=== PATIENT | female | born 1965 | race Caucasian/White ===

== ENCOUNTER 2020-08-18 11:07 | Outpatient (REF) | payer OTHER, SELFPAY ==
[2020-08-18 13:58] LABS: Hemoglobin 13.8 g/dl (12.0-16.0); Mean Corpuscular HGB Conc 31.4 g/dl (31.0-35.0); Mean Corpuscular Hemoglobin 27.7 pg (27.0-33.0); Mean Corpuscular Volume 88.2 fL (80-98); Mean Platelet Volume 10.3 fL (9.4-12.3); Platelet Count 316 X10*3/uL (160-400); Red Blood Count 4.99 X10*6/uL (4.20-5.50); White Blood Count 9.8 X10*3/uL (4.8-10.8)
[2020-08-18 14:38] LABS: Alanine Aminotransferase 64 U/L (0-31); Albumin Level 4.6 g/dL (3.5-5.0); Alkaline Phosphatase 90 U/L (39-117); Anion Gap 17 (12-20); Aspartate Amino Transferase 41 U/L (5-31); Bilirubin Total 0.6 mg/dL (0.0-1.0); Blood Urea Nitrogen 9 mg/dL (9-16); Calcium 9.3 mg/dL (8.4-10.2); Carbon Dioxide 28 mmol/L (22-29); Chloride 98 mmol/L (96-108); Cholesterol 261 mg/dL; Estimated Glomerular Filt Rate > 60; Glucose Fasting 124 mg/dL (60-99); HDL Cholesterol 56 mg/dL; LDL Cholesterol Calculated 173 mg/dl; Potassium 4.5 mmol/l (3.3-5.1); Sodium 138 mmol/L (135-145); Total Protein 7.5 g/dL (6.5-8.0); Triglycerides 163 mg/dL
[2020-08-18 14:49] LABS: Thyroid Stimulating Hormone 1.67 mIU/mL (0.32-4.0)
== END 2020-08-18 11:08 | disposition home or self-care (01) ==
LOC: HO.HMGCLDS 11:07
PROVIDERS: PCP Internal Medicine; Visit Provider Internal Medicine
DX: D23.9 Other benign neoplasm of skin, unspecified (principal); E66.9 Obesity, unspecified; K76.0 Fatty (change of) liver, not elsewhere classified; E78.5 Hyperlipidemia, unspecified; Z00.00 Encounter for general adult medical examination without abnormal findings; Z13.9 Encounter for screening, unspecified
CPT/HCPCS: 36415; 80053; 80061; 84443; 85027

== ENCOUNTER 2022-01-19 09:45 | Outpatient (REF) | payer OTHER, SELFPAY ==
--- NOTE | ~2022-01-19 | XR_ITS ---
EXAMINATION: XR BILATERAL KNEE AND BILATERAL HAND CLINICAL INFORMATION: Pain in knee and bilateral hands. COMPARISON: None. TECHNIQUE: 2 views each knee and 3 views each hand. FINDINGS: Right Knee: There is mild loss of medial and patellofemoral compartment joint space without bony erosive changes or loose bodies. There is no abnormal suprapatellar joint effusion. No visible acute fracture or dislocation seen. There is bilateral soft tissue calcification. Left Knee: There is mild reduction in the medial and patellofemoral compartment joint space left knee with minimal suprapatellar joint effusion. No visible acute fracture or dislocation seen. The soft tissues are normal. There is bilateral soft tissue calcification. Right Hand: There is severe loss of PIP and DIP joints with significant periarticular spurring DIP joints and minimal spurring PIP joints with mild flexion deformities involving the DIP joint 2nd through 5th digits. The MCP joints intercarpal joints are preserved. No visible acute fracture, dislocation or subluxation seen. Left Hand: There is severe loss of PIP and DIP joints with moderate periarticular spurring. The MCP joint spaces are preserved. There is no visible acute fracture or dislocation. No lytic process. The soft tissues are normal. 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 There is no visible acute fracture or dislocation seen. Mild degenerative changes medial and patellofemoral compartments both knees with soft tissue calcification.
--- NOTE | ~2022-01-19 | XR_ITS ---
EXAMINATION: XR BILATERAL KNEE AND BILATERAL HAND CLINICAL INFORMATION: Pain in knee and bilateral hands. COMPARISON: None. TECHNIQUE: 2 views each knee and 3 views each hand. FINDINGS: Right Knee: There is mild loss of medial and patellofemoral compartment joint space without bony erosive changes or loose bodies. There is no abnormal suprapatellar joint effusion. No visible acute fracture or dislocation seen. There is bilateral soft tissue calcification. Left Knee: There is mild reduction in the medial and patellofemoral compartment joint space left knee with minimal suprapatellar joint effusion. No visible acute fracture or dislocation seen. The soft tissues are normal. There is bilateral soft tissue calcification. Right Hand: There is severe loss of PIP and DIP joints with significant periarticular spurring DIP joints and minimal spurring PIP joints with mild flexion deformities involving the DIP joint 2nd through 5th digits. The MCP joints intercarpal joints are preserved. No visible acute fracture, dislocation or subluxation seen. Left Hand: There is severe loss of PIP and DIP joints with moderate periarticular spurring. The MCP joint spaces are preserved. There is no visible acute fracture or dislocation. No lytic process. The soft tissues are normal. 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 There is no visible acute fracture or dislocation seen. Mild degenerative changes medial and patellofemoral compartments both knees with soft tissue calcification.
--- NOTE | ~2022-01-19 | XR_ITS ---
EXAMINATION: XR BILATERAL KNEE AND BILATERAL HAND CLINICAL INFORMATION: Pain in knee and bilateral hands. COMPARISON: None. TECHNIQUE: 2 views each knee and 3 views each hand. FINDINGS: Right Knee: There is mild loss of medial and patellofemoral compartment joint space without bony erosive changes or loose bodies. There is no abnormal suprapatellar joint effusion. No visible acute fracture or dislocation seen. There is bilateral soft tissue calcification. Left Knee: There is mild reduction in the medial and patellofemoral compartment joint space left knee with minimal suprapatellar joint effusion. No visible acute fracture or dislocation seen. The soft tissues are normal. There is bilateral soft tissue calcification. Right Hand: There is severe loss of PIP and DIP joints with significant periarticular spurring DIP joints and minimal spurring PIP joints with mild flexion deformities involving the DIP joint 2nd through 5th digits. The MCP joints intercarpal joints are preserved. No visible acute fracture, dislocation or subluxation seen. Left Hand: There is severe loss of PIP and DIP joints with moderate periarticular spurring. The MCP joint spaces are preserved. There is no visible acute fracture or dislocation. No lytic process. The soft tissues are normal. 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 There is no visible acute fracture or dislocation seen. Mild degenerative changes medial and patellofemoral compartments both knees with soft tissue calcification.
--- NOTE | ~2022-01-19 | XR_ITS ---
EXAMINATION: XR BILATERAL KNEE AND BILATERAL HAND CLINICAL INFORMATION: Pain in knee and bilateral hands. COMPARISON: None. TECHNIQUE: 2 views each knee and 3 views each hand. FINDINGS: Right Knee: There is mild loss of medial and patellofemoral compartment joint space without bony erosive changes or loose bodies. There is no abnormal suprapatellar joint effusion. No visible acute fracture or dislocation seen. There is bilateral soft tissue calcification. Left Knee: There is mild reduction in the medial and patellofemoral compartment joint space left knee with minimal suprapatellar joint effusion. No visible acute fracture or dislocation seen. The soft tissues are normal. There is bilateral soft tissue calcification. Right Hand: There is severe loss of PIP and DIP joints with significant periarticular spurring DIP joints and minimal spurring PIP joints with mild flexion deformities involving the DIP joint 2nd through 5th digits. The MCP joints intercarpal joints are preserved. No visible acute fracture, dislocation or subluxation seen. Left Hand: There is severe loss of PIP and DIP joints with moderate periarticular spurring. The MCP joint spaces are preserved. There is no visible acute fracture or dislocation. No lytic process. The soft tissues are normal. 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 There is no visible acute fracture or dislocation seen. Mild degenerative changes medial and patellofemoral compartments both knees with soft tissue calcification.
[2022-01-19 11:32] LABS: Appearance Urine CLEAR; Color Urine YELLOW; Glucose Urine UA NEG (NEG); Leukocyte Esterase Urine NEG (NEG); Nitrite Urine NEG (NEG); PH 6.5 (5.0-8.0); Specific Gravity - Urine 1.015 (1.005-1.025); Urine Blood NEG (NEG); Urine Ketones NEG (NEG); Urine Protein NEG (NEG-TRACE)
[2022-01-19 11:57] LABS: Bacteria Urine 2+ /LPF; RBC Urine 0 /HPF (0); Squamous Epithelial Cell Urine 2+ /LPF; WBC Urine 0-2 /HPF (0-4)
[2022-01-19 12:03] LABS: Hematocrit 43.7 % (37.0-47.0); Hemoglobin 13.9 g/dl (12.0-16.0); Mean Corpuscular HGB Conc 31.8 g/dl (31.0-35.0); Mean Corpuscular Hemoglobin 27.6 pg (27.0-33.0); Mean Corpuscular Volume 86.9 fL (80.0-98.0); Mean Platelet Volume 10.5 fL (9.4-12.3); Platelet Count 318 X10*3/uL (160-400); Red Blood Count 5.03 X10*6/uL (4.20-5.50); Red Cell Distribution Width 14.2 % (11.0-16.0); White Blood Count 9.3 X10*3/uL (4.8-10.8)
[2022-01-19 12:26] LABS: Alanine Aminotransferase 81 U/L (0-31); Albumin Level 4.4 g/dL (3.5-5.0); Alkaline Phosphatase 101 U/L (39-117); Anion Gap 14 (12-20); Aspartate Amino Transferase 59 U/L (5-31); Bilirubin Total 0.6 mg/dL (0.0-1.0); Blood Urea Nitrogen 9 mg/dL (9-16); Carbon Dioxide 32 mmol/L (22-29); Chloride 99 mmol/L (96-108); Cholesterol 253 mg/dL; Estimated Glomerular Filt Rate > 60; Glucose Fasting 136 mg/dL (60-99); HDL Cholesterol 52 mg/dL; LDL Cholesterol Calculated 166 mg/dl; Potassium 4.5 mmol/L (3.3-5.1); Sodium 140 mmol/L (135-145); Total Protein 7.6 g/dL (6.5-8.0); Triglycerides 179 mg/dL
[2022-01-19 12:40] LABS: TSH reflex Free T4 2.33 uIU/mL (0.32-4.0)
== END 2022-01-19 09:46 | disposition home or self-care (01) ==
LOC: HO.HMGCX 09:45
PROVIDERS: PCP Internal Medicine; Visit Provider Internal Medicine
DX: Z00.00 Encounter for general adult medical examination without abnormal findings (principal); E78.5 Hyperlipidemia, unspecified; M25.569 Pain in unspecified knee; M79.641 Pain in right hand; M79.642 Pain in left hand
CPT/HCPCS: 36415; 73120; 73560; 80053; 80061; 81001; 84443; 85027

== ENCOUNTER 2022-03-03 16:00 | Outpatient (RCR) | payer OTHER, SELFPAY ==
--- NOTE | 2022-01-31 16:57 | MHC.PT.EP ---
[facility] [place] Office [place] Office [place] Office [address] [phone] F: [phone] F: [phone] F: [phone] F: [phone] Physical Therapy Plan of Care Date of Evaluation: Date of Surgery: n/a Diagnosis: L knee pain Assessment: Patient is a 56 year old female presenting to PT with complaints of pain in her B knees L>R. Pt reports onset of pain began worsening 2 weeks ago due to insidious onset. She presents today with impairments in pain, ROM, strength, gait mechanics. 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 Clinical presentation today is most consistent with signs and sx associated with knee pain likely related to OA and muscle imbalances and pt will benefit from skilled PT to address the following problems and impairments noted upon evaluation: pain, ROM, strength, gait mechanics. These problems limit the patient with the following functional activities: ADLs, standing, ambulation, stair negotiation. The prescribed treatment plan of care is medically necessary. Co-morbidities of diabetes and osteoporosis were identified and taken into considerations of plan of care. Pt was educated on HEP, role of PT, prognosis, POC. Frequency and Duration: The patient will be seen 2 x week x 5 weeks Short Term Goals: Pt will demonstrate L knee AROM equal B in 3 weeks. Pt will demonstrate B knee strength 5/5 without pain on L in 3 weeks. Pt will demonstrate hip strength at least 4/5 in 3 weeks for improved lumbopelvic stability. Pt will demonstrate pain at rest <4/10 in 3 weeks. Manager Access Goals: Pt will demonstrate improved LEFI score by 9 points for improved overall functional mobility in 5 weeks. Pt will demonstrate ability to negotiate stairs in her home with min to no pain in 5 weeks for improved access to her home. Pt will demonstrate ability to stand/ambulate with min to no pain in 5 weeks for return to PLOF. Pt will demonstrate ability to complete all ADLs and household duties with min to no pain in 5 weeks for return to PLOF. Treatment Plan: Modalities to reduce pain, spasms and effusion. Manual therapy to restore motion and function. Therapeutic exercise to improve strength and flexibility. Neuromuscular re-education for posture and balance. Therapeutic activities to return to functional activities of daily living. Electronically signed by: Es Meneses, PT, DPT, ATC Please sign and return to therapist. Thank you for your referral.
--- NOTE | 2022-04-08 07:46 | MHC.PT.DC ---
[facility] [place] Office [place] Office [place] Office [address] [phone] F: [phone] F: [phone] F: [phone] F: [phone] Physical Therapy Discharge Report Diagnosis: L knee pain Date of Surgery: n/a Date of Evaluation: 01/31/22 Date of Discharge: 04/08/22 Treatments to Date: 7 Cancellations to Date: 5 No Shows to Date: 1 Discharge Status: Visit Non-compliance Discharge Summary: Pt has cancelled/ no showed her last 4 appointments and not attended skilled PT in >30 days She has also not reached out to schedule. Pt status unknown at this time. Electronically signed by: Es Meneses, PT, DPT, ATC Please sign and return to therapist. Thank you for your referral.
== END 2022-04-08 07:46 | disposition home or self-care (01) ==
LOC: HO.PTCHIC 16:00
PROVIDERS: PCP Internal Medicine; Visit Provider Internal Medicine
DX: M25.562 Pain in left knee (principal)
CPT/HCPCS: 97110; 97161

== ENCOUNTER 2022-04-26 13:09 | Outpatient (REF) | payer OTHER, SELFPAY ==
[2022-04-26 14:34] LABS: Alanine Aminotransferase 35 U/L (0-31); Albumin Level 4.5 g/dL (3.5-5.0); Alkaline Phosphatase 135 U/L (39-117); Anion Gap 12 (12-20); Aspartate Amino Transferase 27 U/L (5-31); Bilirubin Total 0.8 mg/dL (0.0-1.0); Blood Urea Nitrogen 9 mg/dL (9-16); Calcium 9.5 mg/dL (8.4-10.2); Carbon Dioxide 33 mmol/L (22-29); Chloride 100 mmol/L (96-108); Cholesterol 175 mg/dL; Estimated Glomerular Filt Rate > 60; Glucose Fasting 113 mg/dL (60-99); HDL Cholesterol 51 mg/dL; LDL Cholesterol Calculated 100 mg/dl; Potassium 4.5 mmol/L (3.3-5.1); Rheumatoid Factor < 15.0 IU/mL (<15.0); Sodium 140 mmol/L (135-145); Total Protein 7.4 g/dL (6.5-8.0); Triglycerides 121 mg/dL
[2022-04-26 14:36] LABS: Estimated Average Glucose 148 mg/dL; Hemoglobin A1c % 6.8 %
[2022-04-26 14:57] LABS: TSH reflex Free T4 1.66 uIU/mL (0.32-4.0)
[2022-04-26 17:08] LABS: Creatinine Urine 77.78 mg/dL; Microalbum/Creatinine Ratio Ur 10.2 ug/mg cr
[2022-05-02 13:55] LABS: Cyclic Citrullinated Peptide <16 UNITS
== END 2022-04-26 13:10 | disposition home or self-care (01) ==
LOC: HO.HMGCLDS 13:09
PROVIDERS: PCP Internal Medicine; Visit Provider Internal Medicine
DX: E78.5 Hyperlipidemia, unspecified (principal); R73.9 Hyperglycemia, unspecified; M25.50 Pain in unspecified joint
CPT/HCPCS: 36415; 80053; 80061; 82043; 83036; 84443; 86200; 86431

== ENCOUNTER 2022-12-02 07:33 | Outpatient (REF) | payer OTHER, SELFPAY ==
[2022-12-02 12:12] LABS: Alanine Aminotransferase 44 U/L (0-31); Albumin Level 4.3 g/dL (3.5-5.0); Alkaline Phosphatase 126 U/L (39-117); Anion Gap 20 (12-20); Aspartate Amino Transferase 37 U/L (5-31); Bilirubin Total 0.9 mg/dL (0.0-1.0); Blood Urea Nitrogen 10 mg/dL (9-16); Calcium 9.5 mg/dL (8.4-10.2); Carbon Dioxide 27 mmol/L (22-29); Chloride 99 mmol/L (96-108); Cholesterol 194 mg/dL; Estimated Glomerular Filt Rate > 60; Glucose Fasting 147 mg/dL (60-99); HDL Cholesterol 48 mg/dL; LDL Cholesterol Calculated 114 mg/dl; Potassium 4.5 mmol/L (3.3-5.1); Sodium 141 mmol/L (135-145); Total Protein 7.1 g/dL (6.5-8.0); Triglycerides 161 mg/dL
[2022-12-02 14:15] LABS: Estimated Average Glucose 186 mg/dL; Hemoglobin A1c % 8.1 %
== END 2022-12-02 07:34 | disposition home or self-care (01) ==
LOC: HO.HMGCLDS 07:33
PROVIDERS: PCP Internal Medicine; Visit Provider Internal Medicine
DX: R73.9 Hyperglycemia, unspecified (principal); E78.5 Hyperlipidemia, unspecified
CPT/HCPCS: 36415; 80053; 80061; 83036

== ENCOUNTER 2023-02-28 07:26 | Outpatient (REF) | payer OTHER, SELFPAY ==
[2023-02-28 12:15] LABS: Estimated Average Glucose 160 mg/dL; Hemoglobin A1c % 7.2 %
[2023-02-28 12:33] LABS: Alanine Aminotransferase 50 U/L (0-31); Albumin Level 4.3 g/dL (3.5-5.0); Alkaline Phosphatase 140 U/L (39-117); Anion Gap 18 (12-20); Aspartate Amino Transferase 34 U/L (5-31); Bilirubin Total 0.7 mg/dL (0.0-1.0); Blood Urea Nitrogen 13 mg/dL (9-16); Calcium 9.6 mg/dL (8.4-10.2); Carbon Dioxide 27 mmol/L (22-29); Chloride 100 mmol/L (96-108); Cholesterol 197 mg/dL; Estimated Glomerular Filt Rate > 60; Glucose Fasting 133 mg/dL (60-99); HDL Cholesterol 46 mg/dL; LDL Cholesterol Calculated 110 mg/dl; Potassium 4.5 mmol/L (3.3-5.1); Sodium 140 mmol/L (135-145); Triglycerides 205 mg/dL
[2023-02-28 12:55] LABS: Creatinine Urine 229.15 mg/dL; Microalbum/Creatinine Ratio Ur 7.8 ug/mg cr
== END 2023-02-28 07:27 | disposition home or self-care (01) ==
LOC: HO.HMGCLDS 07:26
PROVIDERS: PCP Internal Medicine; Visit Provider Internal Medicine
DX: E11.9 Type 2 diabetes mellitus without complications (principal); E78.5 Hyperlipidemia, unspecified
CPT/HCPCS: 36415; 80053; 80061; 82043; 83036

== ENCOUNTER 2024-03-19 08:22 | Outpatient (REF) | payer OTHER, SELFPAY ==
[2024-03-19 10:22] LABS: MANUAL DIFF FLAG NO
[2024-03-19 10:34] LABS: Basophils Absolute Auto 0.1 X10*3/uL (0.0-0.2); Basophils Percent Auto 0.7 % (0-2); Eosinophils Absolute Auto 0.3 X10*3/uL (0.0-0.4); Eosinophils Percent Auto 3.2 % (0-4); Hematocrit 44.4 % (37.0-47.0); Hemoglobin 14.3 g/dl (12.0-16.0); Imm Gran Abs Auto 0.04 X10*3/uL (0.00-0.03); Imm Gran Pct Auto 0.4 % (0.0-0.4); Lymphocytes Absolute Auto 2.7 X10*3/uL (1.2-4.9); Lymphocytes Percent Auto 29.8 % (20-40); Mean Corpuscular HGB Conc 32.2 g/dl (31.0-35.0); Mean Corpuscular Hemoglobin 27.7 pg (27.0-33.0); Mean Platelet Volume 10.6 fL (9.4-12.3); Monocytes Absolute Auto 0.5 X10*3/uL (0.1-1.2); Monocytes Percent Auto 5.5 % (2-11); Neutrophils Absolute Auto 5.4 x10*3/uL (2.0-8.3); Neutrophils Percent Auto 60.4 % (45-73); Platelet Count 279 X10*3/uL (160-400); Red Blood Count 5.16 X10*6/uL (4.20-5.50); Red Cell Distribution Width 13.9 % (11.0-16.0)
[2024-03-19 10:43] LABS: Estimated Average Glucose 237 mg/dL; Hemoglobin A1c % 9.9 % (<6.0)
[2024-03-19 11:04] LABS: Creatinine Urine 174.58 mg/dL; Microalbum/Creatinine Ratio Ur 10.8 ug/mg cr (<30)
[2024-03-19 11:05] LABS: Alanine Aminotransferase 56 U/L (0-31); Albumin Level 4.1 g/dL (3.5-5.0); Alkaline Phosphatase 117 U/L (39-117); Anion Gap 15 (12-20); Aspartate Amino Transferase 42 U/L (5-31); Bilirubin Total 0.8 mg/dL (0.0-1.0); Blood Urea Nitrogen 12 mg/dL (9-16); Calcium 9.5 mg/dL (8.4-10.2); Carbon Dioxide 28 mmol/L (22-29); Chloride 99 mmol/L (96-108); Cholesterol 239 mg/dL (<200); Estimated Glomerular Filt Rate > 60; Glucose Fasting 176 mg/dL (60-99); HDL Cholesterol 49 mg/dL (>40); LDL Cholesterol Calculated 158 mg/dL (<100); Sodium 138 mmol/L (135-145); Total Protein 7.6 g/dL (6.5-8.0); Triglycerides 164 mg/dL (<150)
[2024-03-19 11:21] LABS: TSH reflex Free T4 2.89 uIU/mL (0.32-4.0)
== END 2024-03-19 08:23 | disposition home or self-care (01) ==
LOC: HO.HMGCLDS 08:22
PROVIDERS: PCP Internal Medicine; Visit Provider Internal Medicine
DX: Z00.00 Encounter for general adult medical examination without abnormal findings (principal); E78.5 Hyperlipidemia, unspecified; E11.9 Type 2 diabetes mellitus without complications
CPT/HCPCS: 36415; 80053; 80061; 82043; 82570; 83036; 84443; 85025

== ENCOUNTER 2024-03-21 09:27 | Outpatient (AMB) | payer OTHER, SELFPAY ==
[2024-03-21 09:30] VITALS: BP 120/80; PULSE 93; O2SAT 96; BMI 48.8
--- NOTE | 2024-03-21 09:30 | MHC.PC.OV ---
Vital Signs 03/21/24 09:30 Height 5 ft Weight 250 lb BMI 48.8 BP 120/80 Blood Pressure Location Lt brachial Position Sitting Pulse 93 Pulse Source Pulse Oximeter Pulse Oximetry (%) 96 Oxygen Delivery Method Room Air Intake Visit Reasons: Diabetic follow-up Intake Note: Pt is here today for a follow up visit on DM. Allergies Sulfa (Sulfonamide Antibiotics) Allergy (Intermediate, Verified 03/21/24 09:39) swollen tounge pravastatin Adverse Reaction (Intermediate, Verified 03/21/24 09:39) Headache Medication List - Last Reconciled 03/21/24 by Marissa Perez MD atorvastatin 20 mg PO DAILY blood sugar diagnostic (FreeStyle Test strips) Test blood sugar twice a day blood-glucose meter (FreeStyle Lite Meter kit) As directed lancets (FreeStyle Lancets) Test blood sugar twice a day metformin ER 1,500 mg (2 x 750 mg) PO DAILY tobramycin 0.3% 1 drp ophthalmic (eye) Q4H venlafaxine ER 150 mg PO BEDTIME Tobacco use date assessed: 03/21/24 Dental Screening Dental Screen Date: 03/21/24 Did you have a dental visit in the last 12 months?: No Did you have a dental problem in the last 6 months where you did not have access to dental care?: No Was dental information given to patient?: Patient declined HPI Diabetic follow-up HPI Details Pt presents for f/u poorly controlled DM 2. She stopped taking Metformin and atorvastatin a few months ago after her father from heart attack last April. Patient reports fasting blood glucose between 180-250. She has been following ADA diet and started exercising the last month and noticed improvement in her blood glucose readings. Chronic anxiety is controlled on Venlafaxine. PFSH Medical History Hyperglycemia Left knee pain Pain in both hands Knee pain Dysplastic nevus Annual physical exam Hyperlipemia Obesity Depression Fatty liver Surgical History S/P AUGUSTO (total abdominal hysterectomy) S/P total hysterectomy Family History Father Hypertension Colon cancer Mother Hypertension Diabetes Breast cancer Social History Housing: House Patient Tobacco Use Status: Never used Tobacco e-Cigarette/Vaping Use: Never Used service: No Current occupational status: unemployed Cognitive needs: No Hearing needs: No Vision needs: Yes Questionnaire PHQ-9 Over the last 2 weeks, how often have you been bothered by any of the following problems? 90090 - PHQ-9 Billing: Patient declined-do not bill Source: Developed by Drs. Gaetano Fajardo, Hector Bates and colleagues, with an educational janet from [employer]. Thrive Questionnaire Date Thrive assessed: 03/21/24 I am a: Patient What is your living situation today?: I have a steady place to live Within the past 12 months, did the food you bought not last and you didn't have the money to get more?: Never true Within the past 12 months, did you worry whether your food would run out before you got money to buy more?: Never true Do you have trouble paying for medicines?: No Do you have trouble getting transportation to medical appointments?: No Do you have trouble paying your heating and electricity bill?: No Do you have trouble taking care of your child, family member or friend?: No Do you have trouble with day-to-day activities such as bathing, preparing meals, shopping, managing finances, etc.?: No Are you currently unemployed and looking for a job?: Yes Are you interested in more education?: No Please select the resources that you would like help with: Job search/training THRIVE Score: 0 AUDIT C Alcohol Use Questionnaire (AUDIT-C) 1. How often do you have a drink containing alcohol?: Never 3. How often do you have six or more drinks on one occasion?: Never Total Score: 0 SATYA-7 AMB Questionnaire SATYA-7 Date SATYA - 7 assessed: 03/21/24 Source: Developed by Drs. Gaetano Fajardo, Hector Bates and colleagues, with an educational janet from [employer]. SATYA-7 Assessment Billing SATYA-7 Assessment Tool: pt declined-do not bill Review of Systems Const All systems reviewed & are unremarkable except as noted in HPI and below Eyes Reports no additional complaints ENT Reports no additional complaints Card Reports no additional complaints Resp Reports no additional complaints GI Reports no additional complaints Reports no additional complaints Physical exam (Primary Care) Vital Signs: Last Vital Signs Pulse 93 03/21/24 09:30 BP 136/82 03/21/24 09:30 Pulse Ox 96 03/21/24 09:30 Oxygen Delivery Method Room Air 03/21/24 09:30 BMI result Body Mass Index 48.8 Tobacco/Smoking Status: Tobacco use Status Tobacco use date assessed 03/21/24 03/21/24 09:44 Patient Tobacco Use Status Never used Tobacco 03/21/24 09:44 e-Cigarette/Vaping Use Never Used 03/21/24 09:30 Thrive Assessment: Date of Thrive Assessment Date Thrive assessed 03/01/23 03/21/24 09:30 Const General: no acute distress HENMT Head: Yes normal to inspection Face and sinus: Yes normal facial exam Eyes General: appearance normal, both eyes and all related structures Neck Neck: Yes no lymphadenopathy and Yes supple Resp Effort & Inspection: normal respiratory effort Auscultation: clear to auscultation bilaterally Cardio Rhythm: regular rhythm Heart sounds: S1 normal heart sound present and S2 normal heart sound present GI Inspection: Yes normal to inspection Palpation (GI): Soft to palpation Percussion: Yes normal to percussion Auscultation: normal bowel sounds Assessment and Plan Assessment & Plan (1) Hyperlipemia: Code(s): E78.5 - Hyperlipidemia, unspecified Plan: Restart atorvastatin (2) Anxiety: Code(s): F41.9 - Anxiety disorder, unspecified Plan: Continue current medications. Patient declined counseling (3) Diabetes type 2, controlled: Code(s): E11.9 - Type 2 diabetes mellitus without complications Plan: ADA diet increase physical activity weight loss discussed with the patient she will restart metformin at 1500 mg, follow-up in 3 months with a fasting labs before (4) Morbid obesity: Code(s): E66.01 - Morbid (severe) obesity due to excess calories Plan: Increase physical activity decrease caloric intake and weight loss discussed with the patient Orders: Orders Lipid Panel 3 Months E11.9 - Type 2 diabetes mellitus without complications, E66.01 - Morbid (severe) obesity due to excess calories, E78.5 - Hyperlipidemia, unspecified, F41.9 - Anxiety disorder, unspecified Microalbumin, Random (w Creat) 3 Months E11.9 - Type 2 diabetes mellitus without complications, E66.01 - Morbid (severe) obesity due to excess calories, E78.5 - Hyperlipidemia, unspecified, F41.9 - Anxiety disorder, unspecified Comprehensive [place]. Panel Fast 3 Months E11.9 - Type 2 diabetes mellitus without complications, E66.01 - Morbid (severe) obesity due to excess calories, E78.5 - Hyperlipidemia, unspecified, F41.9 - Anxiety disorder, unspecified Complete Blood Count Auto Diff 3 Months E11.9 - Type 2 diabetes mellitus without complications, E66.01 - Morbid (severe) obesity due to excess calories, E78.5 - Hyperlipidemia, unspecified, F41.9 - Anxiety disorder, unspecified Hemoglobin A1c 3 Months E11.9 - Type 2 diabetes mellitus without complications, E66.01 - Morbid (severe) obesity due to excess calories, E78.5 - Hyperlipidemia, unspecified, F41.9 - Anxiety disorder, unspecified Medications: Refilled metformin ER 1,500 mg (2 x 750 mg) PO DAILY 180 tabs 3RF atorvastatin 20 mg PO DAILY 90 tabs 3RF venlafaxine ER 150 mg PO BEDTIME 90 caps 3RF Coding Level of Care Code Est Pt Level 4 (50105) Diagnoses Hyperlipemia E78.5 Anxiety F41.9 Diabetes type 2, controlled E11.9 Morbid obesity E66.01
== END 2024-03-21 10:16 | disposition home or self-care (01) ==
PROVIDERS: PCP Internal Medicine; Visit Provider Internal Medicine
DX: E78.5 Hyperlipidemia, unspecified (principal); E11.9 Type 2 diabetes mellitus without complications; E66.01 Morbid (severe) obesity due to excess calories; Z68.42 Body mass index [BMI] 45.0-49.9, adult; F41.9 Anxiety disorder, unspecified
CPT/HCPCS: 99214

== ENCOUNTER 2025-01-20 07:03 | Outpatient (REF) | payer OTHER, SELFPAY ==
[2025-01-20 10:04] LABS: MANUAL DIFF FLAG NO
[2025-01-20 10:11] LABS: Basophils Absolute Auto 0.1 X10*3/uL (0.0-0.2); Basophils Percent Auto 0.7 % (0-2); Eosinophils Absolute Auto 0.3 X10*3/uL (0.0-0.4); Eosinophils Percent Auto 4.1 % (0-4); Hematocrit 47.7 % (37.0-47.0); Hemoglobin 15.4 g/dl (12.0-16.0); Imm Gran Abs Auto 0.03 X10*3/uL (0.00-0.03); Imm Gran Pct Auto 0.4 % (0.0-0.4); Lymphocytes Absolute Auto 3.3 X10*3/uL (1.2-4.9); Lymphocytes Percent Auto 41.1 % (20-40); Mean Corpuscular HGB Conc 32.3 g/dl (31.0-35.0); Mean Corpuscular Hemoglobin 27.3 pg (27.0-33.0); Mean Corpuscular Volume 84.4 fL (80.0-98.0); Mean Platelet Volume 10.7 fL (9.4-12.3); Monocytes Absolute Auto 0.5 X10*3/uL (0.1-1.2); Neutrophils Absolute Auto 3.8 x10*3/uL (2.0-8.3); Neutrophils Percent Auto 47.7 % (45-73); Platelet Count 292 X10*3/uL (160-400); Red Blood Count 5.65 X10*6/uL (4.20-5.50); Red Cell Distribution Width 13.9 % (11.0-16.0)
[2025-01-20 10:30] LABS: Estimated Average Glucose 321 mg/dL; Hemoglobin A1c % 12.8 % (<6.0); Total Hemoglobin (HGBA1C) 3968.2296 umol/L
[2025-01-20 11:13] LABS: Creatinine Urine 105.72 mg/dL; Microalbum/Creatinine Ratio Ur 23.6 ug/mg cr (<30)
[2025-01-20 11:20] LABS: Alanine Aminotransferase 126 U/L (0-31); Albumin Level 4.2 g/dL (3.5-5.0); Alkaline Phosphatase 150 U/L (39-117); Anion Gap 18 (12-20); Aspartate Amino Transferase 74 U/L (5-31); Bilirubin Total 0.8 mg/dL (0.0-1.0); Blood Urea Nitrogen 13 mg/dL (9-16); Calcium 9.7 mg/dL (8.4-10.2); Carbon Dioxide 26 mmol/L (22-29); Chloride 96 mmol/L (96-108); Cholesterol 293 mg/dL (<200); Estimated Glomerular Filt Rate > 60; Glucose Fasting 402 mg/dL (60-99); HDL Cholesterol 51 mg/dL (>40); LDL Cholesterol Calculated 187 mg/dL (<100); Potassium 4.1 mmol/L (3.3-5.1); Sodium 136 mmol/L (135-145); Total Protein 7.7 g/dL (6.5-8.0); Triglycerides 278 mg/dL (<150)
== END 2025-01-20 07:04 | disposition home or self-care (01) ==
LOC: HO.HMGCLDS 07:03
PROVIDERS: PCP Internal Medicine; Visit Provider Internal Medicine
DX: E11.9 Type 2 diabetes mellitus without complications (principal); E78.5 Hyperlipidemia, unspecified; F41.9 Anxiety disorder, unspecified; E66.01 Morbid (severe) obesity due to excess calories
CPT/HCPCS: 36415; 80053; 80061; 82043; 82570; 83036; 85025

== ENCOUNTER 2025-01-24 08:21 | Outpatient (AMB) | payer OTHER, SELFPAY ==
[2025-01-24 08:28] VITALS: BP 128/80; PULSE 100; RESP 18; TEMP 36.8; O2SAT 97; BMI 46.7
--- NOTE | 2025-01-24 08:28 | MHC.PC.OV ---
Vital Signs 01/24/25 08:28 Height 5 ft Weight 239 lb BMI 46.7 BP 128/80 Blood Pressure Location Lt brachial Position Sitting Respiration 18 Pulse 100 Pulse Source Pulse Oximeter Temp 98.2 F Temp Source Oral Pulse Oximetry (%) 97 Oxygen Delivery Method Room Air Intake Visit Reasons: Annual PE/Overdue nathalie 09/26 Intake Note: Pt is here today for PE. Allergies Sulfa (Sulfonamide Antibiotics) Allergy (Intermediate, Verified 01/24/25 08:30) swollen tounge pravastatin Adverse Reaction (Intermediate, Verified 01/24/25 08:30) Headache Medication List - Last Reconciled 01/24/25 by Marissa Perez MD atorvastatin 40 mg PO DAILY blood sugar diagnostic (FreeStyle Test strips) Test blood sugar twice a day blood-glucose meter (FreeStyle Lite Meter kit) As directed lancets (FreeStyle Lancets) Test blood sugar twice a day metformin ER 750 mg PO BID venlafaxine ER 150 mg PO BEDTIME Tobacco use date assessed: 01/24/25 Dental Screening Dental Screen Date: 01/24/25 Did you have a dental visit in the last 12 months?: No Did you have a dental problem in the last 6 months where you did not have access to dental care?: No Was dental information given to patient?: Patient declined HPI Annual PE/Overdue nathalie 09/26 HPI Details Patient presents for physical. She reports improving blood glucose readings since started taking metformin. Patient has been changing diet and following ADA diet more regularly. She denies polyuria polydipsia. Patient has stopped taking atorvastatin but is willing to restart it PFSH Medical History (Updated 01/24/25 @ 15:33 by Marissa Perez MD) Hyperglycemia Left knee pain Pain in both hands Knee pain Dysplastic nevus Annual physical exam Hyperlipemia Obesity Depression Fatty liver Surgical History S/P AUGUSTO (total abdominal hysterectomy) S/P total hysterectomy Family History Father Hypertension Colon cancer Mother Hypertension Diabetes Breast cancer Social History Housing: House Patient Tobacco Use Status: Never used Tobacco e-Cigarette/Vaping Use: Never Used service: No Current occupational status: unemployed Cognitive needs: No Hearing needs: No Vision needs: Yes Questionnaire PHQ-9 Over the last 2 weeks, how often have you been bothered by any of the following problems? 1. Little interest or pleasure in doing things: not at all 2. Feeling down, depressed, or hopeless: not at all 3. Trouble falling or staying asleep, or sleeping too much: not at all 4. Feeling tired or having little energy: not at all 5. Poor appetite or overeating: not at all 6. Feeling bad about yourself - or that you are a failure or have let yourself or your family down: not at all 7. Trouble concentrating on things, such as reading the newspaper or watching television: not at all 8. Moving or speaking so slowly that other people could have noticed. Or the opposite - being so fidgety or restless that you have been moving around a lot more than usual: not at all 9. Thoughts that you would be better off or of hurting yourself in some way: not at all Total score: 0 Depression Screening Interpretation: Negative Depression Screening Done: Yes 06235 - PHQ-9 Billing: Yes Source: Developed by Drs. Gaetano Fajardo, Amisha Butler, Hector Thibodeaux and colleagues, with an educational janet from [employer]. Thrive Questionnaire Date Thrive assessed: 01/24/25 I am a: Patient What is your living situation today?: I have a steady place to live Within the past 12 months, did the food you bought not last and you didn't have the money to get more?: Never true Within the past 12 months, did you worry whether your food would run out before you got money to buy more?: Never true Do you have trouble paying for medicines?: No Do you have trouble getting transportation to medical appointments?: No Do you have trouble paying your heating and electricity bill?: No Do you have trouble taking care of your child, family member or friend?: No Do you have trouble with day-to-day activities such as bathing, preparing meals, shopping, managing finances, etc.?: No Are you currently unemployed and looking for a job?: No Are you interested in more education?: No Please select the resources that you would like help with: None Currently or been in a relationship where the following occur: No concerns reported THRIVE Score: 0 AUDIT C Alcohol Use Questionnaire (AUDIT-C) 1. How often do you have a drink containing alcohol?: Never 3. How often do you have six or more drinks on one occasion?: Never Total Score: 0 SATYA-7 AMB Questionnaire SATYA-7 Date SATYA - 7 assessed: 01/24/25 Feeling nervous, anxious, or on edge: 0 = Not at all Not being able to stop or control worryin = Not at all Worrying too much about different things: 0 = Not at all Trouble relaxin = Not at all Being so restless that it is hard to sit still: 0 = Not at all Becoming easily annoyed or irritable: 0 = Not at all Feeling afraid as if something awful might happen: 0 = Not at all Total SATYA-7 score (0-4 normal; 5-9 mild; 10-14 moderate; 15-21 severe): 0 Source: Developed by Drs. Gaetano Fajardo, Amisha Butler, Hector Thibodeaux and colleagues, with an educational janet from [employer]. SATYA-7 Assessment Billing SATYA-7 Assessment Tool: SATYA-7 Assessment 63613 Review of Systems Const All systems reviewed & are unremarkable except as noted in HPI and below Eyes Reports no additional complaints ENT Reports no additional complaints Card Reports no additional complaints Resp Reports no additional complaints GI Reports no additional complaints Reports no additional complaints Physical exam (Primary Care) Vital Signs: Last Vital Signs Temp 98.2 F 01/24/25 08:28 Pulse 100 01/24/25 08:28 Resp 18 01/24/25 08:28 BP 128/80 01/24/25 08:28 Pulse Ox 97 01/24/25 08:28 Oxygen Delivery Method Room Air 01/24/25 08:28 BMI result Body Mass Index 46.7 Tobacco/Smoking Status: Tobacco use Status Tobacco use date assessed 01/24/25 01/24/25 08:34 Patient Tobacco Use Status Never used Tobacco 01/24/25 08:34 e-Cigarette/Vaping Use Never Used 01/24/25 08:34 PHQ-9: PHQ-9 Score PHQ-9: Total score 0 01/24/25 09:13 Depression Screening Interpretation: Negative Thrive Assessment: Date of Thrive Assessment Date Thrive assessed 01/24/25 01/24/25 08:34 Currently or been in a relationship where the following occur: No concerns reported Const General: no acute distress HENMT Head: Yes normal to inspection Face and sinus: Yes normal facial exam Mouth: Normal oral and palatal mucosa present Eyes General: appearance normal, both eyes and all related structures Neck Neck: Yes no lymphadenopathy and Yes supple Resp Effort & Inspection: normal respiratory effort Auscultation: clear to auscultation bilaterally Cardio Rhythm: regular rhythm Heart sounds: S1 normal heart sound present and S2 normal heart sound present GI Inspection: Yes normal to inspection Palpation (GI): Soft to palpation Percussion: Yes normal to percussion Auscultation: normal bowel sounds Extrem Other: Diabetic foot exam skin is intact monofilament and vibration sensation intact bilaterally General: Yes no clubbing, cyanosis or edema Coding Level of Care Code Est Pt Prev Care 40-64y(39588) Diagnoses Diabetes type 2, controlled E11.9 Morbid obesity E66.01 Annual physical exam Z00.00 Hyperlipemia E78.5 Additional Codes SATYA-7 Assessment Billing - SATYA-7 Assessment Tool: SATYA-7 Assessment 07081 ([id number]) PHQ-9 - 32414 - PHQ-9 Billing: Yes ([id number]) Assessment & Plan Assessment & Plan (1) Diabetes type 2, controlled: Code(s): E11.9 - Type 2 diabetes mellitus without complications Category: Medical Plan: A1c was 12.8, increase metformin to 750 twice a day Continue ADA diet increase physical activity weight loss discussed with the patient. She was advised to monitor her blood glucose at least twice a day record the readings. Referred to director medical writing. Follow-up in 3 weeks (2) Morbid obesity: Code(s): E66.01 - Morbid (severe) obesity due to excess calories Category: Medical Plan: Decreasing caloric intake increasing physical activity discussed with the patient (3) Annual physical exam: Code(s): Z00.00 - Encounter for general adult medical examination without abnormal findings Category: Medical Plan: Well-balanced diet regular exercise weight loss discussed with the patient she declined mammogram colonoscopy (4) Hyperlipemia: Code(s): E78.5 - Hyperlipidemia, unspecified Category: Medical Plan: Restart atorvastatin 40 mg a day Orders: Referrals Cologuard Test Z12.11 - Encounter for screening for malignant neoplasm of colon, Z12.12 - Encounter for screening for malignant neoplasm of rectum Nutrition/Dietitian Referral E11.9 - Type 2 diabetes mellitus without complications, E66.01 - Morbid (severe) obesity due to excess calories Medications: New metformin ER 750 mg PO BID 180 tabs 3RF atorvastatin 40 mg PO DAILY 90 tabs 3RF
== END 2025-01-24 09:24 | disposition home or self-care (01) ==
LOC: HO.HMCC 08:22
PROVIDERS: PCP Internal Medicine; Visit Provider Internal Medicine
DX: Z00.00 Encounter for general adult medical examination without abnormal findings (principal); E11.69 Type 2 diabetes mellitus with other specified complication; E66.01 Morbid (severe) obesity due to excess calories; Z68.42 Body mass index [BMI] 45.0-49.9, adult; E78.5 Hyperlipidemia, unspecified

== ENCOUNTER → 2025-01-24 08:21 | Outpatient (BNVA) | payer OTHER, SELFPAY | PROVIDERS: PCP Internal Medicine; Visit Provider Internal Medicine | DX: Z00.00 Encounter for general adult medical examination without abnormal findings (principal); E11.9 Type 2 diabetes mellitus without complications; E78.5 Hyperlipidemia, unspecified; E66.01 Morbid (severe) obesity due to excess calories; Z68.42 Body mass index [BMI] 45.0-49.9, adult; Z79.84 Long term (current) use of oral hypoglycemic drugs | CPT/HCPCS: 96127 ==

== ENCOUNTER 2025-02-04 09:19 | Outpatient (AMB) | payer OTHER, SELFPAY ==
[2025-02-04 09:28] VITALS: BP 130/80; PULSE 96; RESP 20; TEMP 36.6; O2SAT 96; BMI 45.1
--- NOTE | 2025-02-04 09:28 | A.OFFPC_ITS ---
Vital Signs 02/04/25 09:28 Height 5 ft Weight 231 lb BMI 45.1 BP 130/80 Blood Pressure Location Lt brachial Position Sitting Respiration 20 Pulse 96 Pulse Source Pulse Oximeter Temp 97.8 F Temp Source Oral Pulse Oximetry (%) 96 Oxygen Delivery Method Room Air Intake Visit Reasons: blurred vision, dizziness Intake Note: Pt is here today for a sick visit. Pt c/o blurred vision and dizziness for 3-4 days. Pt is not sure if the symptoms are cause due to new medication she was started on. Allergies Sulfa (Sulfonamide Antibiotics) Allergy (Intermediate, Verified 02/04/25 09:28) swollen tounge pravastatin Adverse Reaction (Intermediate, Verified 02/04/25 09:28) Headache Tobacco use date assessed: 02/04/25 Dental Screening Dental Screen Date: 01/24/25 HPI blurred vision, dizziness HPI Details Patient presents for the follow-up of poorly controlled type 2 diabetes. Patient reports improving fasting blood glucose readings down to 150s for the last week. She could not tolerate 2 tablets of metformin developed stomach upset and diarrhea. Patient complains of 4 days of blurred vision but denies vision loss, headaches nausea vomiting change in balance, weakness or numbness in extremities. Patient had a normal eye exam in July 2024 [facility] Medical History (Updated 02/04/25 @ 10:39 by Marissa Perez MD) Hyperglycemia Left knee pain Pain in both hands Knee pain Dysplastic nevus Annual physical exam Hyperlipemia Obesity Depression Fatty liver Surgical History S/P AUGUSTO (total abdominal hysterectomy) S/P total hysterectomy Family History Father Hypertension Colon cancer Mother Hypertension Diabetes Breast cancer Social History Housing: House Patient Tobacco Use Status: Never used Tobacco e-Cigarette/Vaping Use: Never Used service: No Current occupational status: unemployed Cognitive needs: No Hearing needs: No Vision needs: Yes Questionnaire Thrive Questionnaire Date Thrive assessed: 01/19/25 I am a: Patient What is your living situation today?: I have a steady place to live Within the past 12 months, did the food you bought not last and you didn't have the money to get more?: Never true Within the past 12 months, did you worry whether your food would run out before you got money to buy more?: Never true Do you have trouble paying for medicines?: No Do you have trouble getting transportation to medical appointments?: No Do you have trouble paying your heating and electricity bill?: No Do you have trouble taking care of your child, family member or friend?: No Do you have trouble with day-to-day activities such as bathing, preparing meals, shopping, managing finances, etc.?: No Are you currently unemployed and looking for a job?: No Are you interested in more education?: No Please select the resources that you would like help with: None Currently or been in a relationship where the following occur: No concerns reported THRIVE Score: 0 SATYA-7 AMB Questionnaire SATYA-7 Date SATYA - 7 assessed: 01/24/25 Source: Developed by Drs. Gaetano Fajardo, Amisha Butler, Hector Thibodeaux and colleagues, with an educational janet from [employer]. Review of Systems Const All systems reviewed & are unremarkable except as noted in HPI and below Eyes Reports no additional complaints ENT Reports no additional complaints Card Reports no additional complaints Resp Reports no additional complaints GI Reports no additional complaints Reports no additional complaints Physical exam (Primary Care) Vital Signs: Last Vital Signs Temp 97.8 F 02/04/25 09:28 Pulse 96 02/04/25 09:28 Resp 20 02/04/25 09:28 BP 130/80 02/04/25 09:28 Pulse Ox 96 02/04/25 09:28 Oxygen Delivery Method Room Air 02/04/25 09:28 BMI result Body Mass Index 45.1 Tobacco/Smoking Status: Tobacco use Status Tobacco use date assessed 02/04/25 02/04/25 09:29 Patient Tobacco Use Status Never used Tobacco 02/04/25 09:29 e-Cigarette/Vaping Use Never Used 02/04/25 09:29 Thrive Assessment: Date of Thrive Assessment Date Thrive assessed 01/19/25 02/04/25 09:29 Currently or been in a relationship where the following occur: No concerns reported Const General: no acute distress HENMT Head: Yes normal to inspection Face and sinus: Yes normal facial exam Eyes General: appearance normal, both eyes and all related structures Pupils: Equal, round and reactive pupils present EOM: EOMs intact bilaterally Neck Neck: Yes supple Resp Effort & Inspection: normal respiratory effort Auscultation: clear to auscultation bilaterally Cardio Rhythm: regular rhythm Heart sounds: S1 normal heart sound present and S2 normal heart sound present Neuro Cranial nerves: Yes Equal, round and reactive pupils present Results AMB Random Glucose (hemocue) AMB Random Glucose (hemocue) 164 mg/dL Last Edit by CHEPE Lopez on 02/04/25 10:16 Coding Level of Care Code Est Pt Level 4 (90666) Diagnoses Poorly controlled type 2 diabetes mellitus E11.65 Hyperlipemia E78.5 Assessment & Plan Assessment & Plan (1) Poorly controlled type 2 diabetes mellitus: Comment: Patient could not tolerate 1500 mg of metformin, patient refused Pneumovax 01/2025 Code(s): E11.65 - Type 2 diabetes mellitus with hyperglycemia Category: Medical Plan: Continue 750 mg of metformin and ADA diet, increase physical activity. Patient will continue to monitor her blood glucose before meals and at bedtime. Patient was advised that transitional bruit vision is common and a poorly controlled diabetes she was advised to follow-up with [facility] if her symptoms do not improve in a few days. Patient will return in 2 weeks (2) Hyperlipemia: Code(s): E78.5 - Hyperlipidemia, unspecified Category: Medical Plan: Continue statin Orders: Orders AMB Random Glucose (hemocue) Today Z13.9 - Encounter for screening, unspecified
== END 2025-02-04 10:40 | disposition home or self-care (01) ==
LOC: HO.HMCC 09:19
PROVIDERS: PCP Internal Medicine; Visit Provider Internal Medicine
DX: E11.65 Type 2 diabetes mellitus with hyperglycemia (principal); E78.5 Hyperlipidemia, unspecified; Z13.9 Encounter for screening, unspecified

== ENCOUNTER → 2025-02-04 09:19 | Outpatient (BNVA) | payer OTHER, SELFPAY | PROVIDERS: PCP Internal Medicine; Visit Provider Internal Medicine | DX: E11.65 Type 2 diabetes mellitus with hyperglycemia (principal); E78.5 Hyperlipidemia, unspecified; Z79.84 Long term (current) use of oral hypoglycemic drugs; Z79.899 Other long term (current) drug therapy | CPT/HCPCS: 82948 ==

== ENCOUNTER 2025-02-19 09:21 | Outpatient (AMB) | payer OTHER, SELFPAY ==
[2025-02-19 09:30] VITALS: BP 136/80; PULSE 84; RESP 20; TEMP 36.7; O2SAT 96; BMI 44.5
--- NOTE | 2025-02-19 09:30 | MHC.PC.OV ---
Vital Signs 02/19/25 09:30 Height 5 ft Weight 228 lb BMI 44.5 BP 136/80 Blood Pressure Location Lt brachial Position Sitting Respiration 20 Pulse 84 Pulse Source Pulse Oximeter Temp 98.1 F Temp Source Oral Pulse Oximetry (%) 96 Oxygen Delivery Method Room Air Intake Visit Reasons: 3w f/u Intake Note: Pt is here today for 3 weeks follow up visit. Allergies Sulfa (Sulfonamide Antibiotics) Allergy (Intermediate, Verified 02/19/25 09:33) swollen tounge pravastatin Adverse Reaction (Intermediate, Verified 02/19/25 09:33) Headache Medication List - Last Reconciled 02/19/25 by Marissa Perez MD atorvastatin 40 mg PO DAILY blood sugar diagnostic (FreeStyle Test strips) Test blood sugar twice a day blood-glucose meter (FreeStyle Lite Meter kit) As directed lancets (FreeStyle Lancets) Test blood sugar twice a day metformin ER 750 mg PO BID venlafaxine ER 150 mg PO BEDTIME Tobacco use date assessed: 02/19/25 Dental Screening Dental Screen Date: 01/24/25 HPI 3w f/u HPI Details Patient presents for the follow-up of poorly controlled diabetes. She could not tolerate more than 750 mg of metformin but reports significantly improved blood glucose readings down to between 110-140 before meals. Patient has been checking her blood glucose 4 times a day. She has been taking atorvastatin for hyperlipidemia and following low-cholesterol diet. Patient lost 10 lb in 1 month [facility] Medical History (Updated 02/19/25 @ 09:53 by Marissa Perez MD) Left knee pain Pain in both hands Knee pain Dysplastic nevus Annual physical exam Hyperlipemia Obesity Depression Fatty liver Surgical History S/P AUGUSTO (total abdominal hysterectomy) S/P total hysterectomy Family History Father Hypertension Colon cancer Mother Hypertension Diabetes Breast cancer Social History Housing: House Patient Tobacco Use Status: Never used Tobacco e-Cigarette/Vaping Use: Never Used service: No Current occupational status: unemployed Cognitive needs: No Hearing needs: No Vision needs: Yes Questionnaire Thrive Questionnaire Date Thrive assessed: 01/19/25 I am a: Patient What is your living situation today?: I have a steady place to live Within the past 12 months, did the food you bought not last and you didn't have the money to get more?: Never true Within the past 12 months, did you worry whether your food would run out before you got money to buy more?: Never true Do you have trouble paying for medicines?: No Do you have trouble getting transportation to medical appointments?: No Do you have trouble paying your heating and electricity bill?: No Do you have trouble taking care of your child, family member or friend?: No Do you have trouble with day-to-day activities such as bathing, preparing meals, shopping, managing finances, etc.?: No Are you currently unemployed and looking for a job?: No Are you interested in more education?: No Please select the resources that you would like help with: None Currently or been in a relationship where the following occur: No concerns reported THRIVE Score: 0 SATYA-7 AMB Questionnaire SATYA-7 Date SATYA - 7 assessed: 01/24/25 Source: Developed by Drs. Gaetano Fajardo, Amisha Butler, Hector Thibodeaux and colleagues, with an educational janet from [employer]. Review of Systems Const All systems reviewed & are unremarkable except as noted in HPI and below ENT Reports no additional complaints Card Reports no additional complaints Resp Reports no additional complaints GI Reports no additional complaints Physical exam (Primary Care) Vital Signs: Last Vital Signs Temp 98.1 F 02/19/25 09:30 Pulse 84 02/19/25 09:30 Resp 20 02/19/25 09:30 BP 136/80 02/19/25 09:30 Pulse Ox 96 02/19/25 09:30 Oxygen Delivery Method Room Air 02/19/25 09:30 BMI result Body Mass Index 44.5 Tobacco/Smoking Status: Tobacco use Status Tobacco use date assessed 02/19/25 02/19/25 09:38 Patient Tobacco Use Status Never used Tobacco 02/19/25 09:38 e-Cigarette/Vaping Use Never Used 02/19/25 09:33 Thrive Assessment: Date of Thrive Assessment Date Thrive assessed 01/19/25 02/19/25 09:33 Currently or been in a relationship where the following occur: No concerns reported Const General: no acute distress HENMT Face and sinus: Yes normal facial exam Eyes General: appearance normal, both eyes and all related structures Resp Effort & Inspection: normal respiratory effort Auscultation: clear to auscultation bilaterally Cardio Rhythm: regular rhythm Heart sounds: S1 normal heart sound present and S2 normal heart sound present Coding Level of Care Code Est Pt Level 4 (27877) Diagnoses Poorly controlled type 2 diabetes mellitus E11.65 Hyperlipemia E78.5 Obesity E66.9 Assessment & Plan Assessment & Plan (1) Poorly controlled type 2 diabetes mellitus: Comment: Patient could not tolerate 1500 mg of metformin, patient refused Pneumovax 01/2025 Code(s): E11.65 - Type 2 diabetes mellitus with hyperglycemia Category: Medical Plan: Continue ADA diet regular physical activity metformin and glucose monitoring. Follow-up in 1 month with a fasting labs (2) Hyperlipemia: Code(s): E78.5 - Hyperlipidemia, unspecified Category: Medical Plan: Continue atorvastatin (3) Obesity: Code(s): E66.9 - Obesity, unspecified Category: Medical Plan: Decrease caloric intake increase physical activity and weight loss discussed with the patient Orders: Orders Lipid Panel 1 Month E11.65 - Type 2 diabetes mellitus with hyperglycemia, E66.9 - Obesity, unspecified, E78.5 - Hyperlipidemia, unspecified Complete Blood Count Auto Diff 1 Month E11.65 - Type 2 diabetes mellitus with hyperglycemia, E66.9 - Obesity, unspecified, E78.5 - Hyperlipidemia, unspecified Comprehensive [place]. Panel Fast 1 Month E11.65 - Type 2 diabetes mellitus with hyperglycemia, E66.9 - Obesity, unspecified, E78.5 - Hyperlipidemia, unspecified Hemoglobin A1c 1 Month E11.65 - Type 2 diabetes mellitus with hyperglycemia, E66.9 - Obesity, unspecified, E78.5 - Hyperlipidemia, unspecified Microalbumin, Random (w Creat) 1 Month E11.65 - Type 2 diabetes mellitus with hyperglycemia, E66.9 - Obesity, unspecified, E78.5 - Hyperlipidemia, unspecified Medications: Changed From metformin ER 750 mg PO BID 180 tabs 3RF To metformin ER 750 mg PO QPM 180 tabs 3RF Refilled lancets (FreeStyle Lancets) Test blood sugar twice a day 200 ea 3RF E11.9 - Type 2 diabetes mellitus without complications
== END 2025-02-19 09:58 | disposition home or self-care (01) ==
LOC: HO.HMCC 09:22
PROVIDERS: PCP Internal Medicine; Visit Provider Internal Medicine
DX: E11.65 Type 2 diabetes mellitus with hyperglycemia (principal); E66.9 Obesity, unspecified; Z68.41 Body mass index [BMI] 40.0-44.9, adult; E78.5 Hyperlipidemia, unspecified

== ENCOUNTER → 2025-02-19 09:21 | Outpatient (BNVA) | payer OTHER, SELFPAY | PROVIDERS: PCP Internal Medicine; Visit Provider Internal Medicine ==

== ENCOUNTER 2025-03-18 07:52 | Outpatient (REF) | payer OTHER, SELFPAY ==
[2025-03-18 10:07] LABS: MANUAL DIFF FLAG NO
[2025-03-18 10:13] LABS: Basophils Absolute Auto 0.1 X10*3/uL (0.0-0.2); Basophils Percent Auto 0.7 % (0-2); Eosinophils Absolute Auto 0.4 X10*3/uL (0.0-0.4); Hematocrit 44.8 % (37.0-47.0); Hemoglobin 14.2 g/dl (12.0-16.0); Imm Gran Abs Auto 0.01 X10*3/uL (0.00-0.03); Imm Gran Pct Auto 0.1 % (0.0-0.4); Lymphocytes Absolute Auto 2.4 X10*3/uL (1.2-4.9); Mean Corpuscular HGB Conc 31.7 g/dl (31.0-35.0); Mean Corpuscular Hemoglobin 27.2 pg (27.0-33.0); Mean Corpuscular Volume 85.8 fL (80.0-98.0); Mean Platelet Volume 10.4 fL (9.4-12.3); Monocytes Absolute Auto 0.4 X10*3/uL (0.1-1.2); Monocytes Percent Auto 5.6 % (2-11); Neutrophils Absolute Auto 3.8 x10*3/uL (2.0-8.3); Neutrophils Percent Auto 54.6 % (45-73); Platelet Count 296 X10*3/uL (160-400); Red Blood Count 5.22 X10*6/uL (4.20-5.50); Red Cell Distribution Width 13.6 % (11.0-16.0)
[2025-03-18 10:31] LABS: Alanine Aminotransferase 41 U/L (0-31); Albumin Level 4.8 g/dL (3.5-5.0); Alkaline Phosphatase 128 U/L (39-117); Anion Gap 17 (12-20); Aspartate Amino Transferase 46 U/L (5-31); Blood Urea Nitrogen 10 mg/dL (9-16); Calcium 9.8 mg/dL (8.4-10.2); Carbon Dioxide 28 mmol/L (22-29); Chloride 101 mmol/L (96-108); Cholesterol 125 mg/dL (<200); Estimated Glomerular Filt Rate > 60; Glucose Fasting 119 mg/dL (60-99); HDL Cholesterol 38 mg/dL (>40); LDL Cholesterol Calculated 58 mg/dL (<100); Potassium 3.6 mmol/L (3.3-5.1); Sodium 142 mmol/L (135-145); Total Protein 7.8 g/dL (6.5-8.0); Triglycerides 146 mg/dL (<150)
[2025-03-18 10:49] LABS: Estimated Average Glucose 174 mg/dL; Hemoglobin A1c % 7.7 % (<6.0)
== END 2025-03-18 07:53 | disposition home or self-care (01) ==
LOC: HO.HMGCLDS 07:52
PROVIDERS: PCP Internal Medicine; Visit Provider Internal Medicine
DX: E11.65 Type 2 diabetes mellitus with hyperglycemia (principal); E78.5 Hyperlipidemia, unspecified; E66.9 Obesity, unspecified
CPT/HCPCS: 36415; 80053; 80061; 83036; 85025

== ENCOUNTER 2025-03-20 13:53 | Outpatient (AMB) | payer OTHER, SELFPAY ==
[2025-03-20 14:41] VITALS: BP 128/78; PULSE 87; RESP 18; O2SAT 95; BMI 43.2
--- NOTE | 2025-03-20 14:41 | MHC.PC.OV ---
Vital Signs 03/20/25 14:41 Height 5 ft Weight 221 lb BMI 43.2 BP 128/78 Blood Pressure Location Lt brachial Position Sitting Respiration 18 Pulse 87 Pulse Source Pulse Oximeter Pulse Oximetry (%) 95 Oxygen Delivery Method Room Air Intake Visit Reasons: 1m follow up Intake Note: Pt is here today for 1 month follow up visit. Allergies Sulfa (Sulfonamide Antibiotics) Allergy (Intermediate, Verified 02/19/25 09:33) swollen tounge pravastatin Adverse Reaction (Intermediate, Verified 02/19/25 09:33) Headache Medication List - Last Reconciled 03/20/25 by Marissa Perez MD atorvastatin 40 mg PO DAILY blood sugar diagnostic (FreeStyle Test strips) Test blood sugar twice a day blood-glucose meter (FreeStyle Lite Meter kit) As directed lancets (FreeStyle Lancets) Test blood sugar twice a day metformin ER 1,500 mg (2 x 750 mg) PO QPM venlafaxine ER 150 mg PO BEDTIME Tobacco use date assessed: 03/20/25 Dental Screening Dental Screen Date: 01/24/25 HPI 1m follow up HPI Details Patient presents for the follow-up of type 2 diabetes. She reports improved glycemic control with a fasting blood glucose readings between 95-110. Patient has been tolerating metformin well and has been following ADA diet. She complains of constipation on and off for 2 weeks. She has been taking Metamucil and increase fluid intake without improvement. She denies abdominal pain nausea vomiting. Patient has been taking atorvastatin daily and tolerating well. [facility] Medical History (Updated 03/20/25 @ 16:38 by Marissa Perez MD) Left knee pain Pain in both hands Knee pain Dysplastic nevus Annual physical exam Hyperlipemia Obesity Depression Fatty liver Surgical History S/P AUGUSTO (total abdominal hysterectomy) S/P total hysterectomy Family History Father Hypertension Colon cancer Mother Hypertension Diabetes Breast cancer Social History Housing: House Patient Tobacco Use Status: Never used Tobacco e-Cigarette/Vaping Use: Never Used service: No Current occupational status: unemployed Cognitive needs: No Hearing needs: No Vision needs: Yes Questionnaire Thrive Questionnaire Date Thrive assessed: 01/19/25 I am a: Patient What is your living situation today?: I have a steady place to live Within the past 12 months, did the food you bought not last and you didn't have the money to get more?: Never true Within the past 12 months, did you worry whether your food would run out before you got money to buy more?: Never true Do you have trouble paying for medicines?: No Do you have trouble getting transportation to medical appointments?: No Do you have trouble paying your heating and electricity bill?: No Do you have trouble taking care of your child, family member or friend?: No Do you have trouble with day-to-day activities such as bathing, preparing meals, shopping, managing finances, etc.?: No Are you currently unemployed and looking for a job?: No Are you interested in more education?: No Please select the resources that you would like help with: None Currently or been in a relationship where the following occur: No concerns reported THRIVE Score: 0 SATYA-7 AMB Questionnaire SATYA-7 Date SATYA - 7 assessed: 01/24/25 Source: Developed by Drs. Gaetano Fajardo, Amisha Butler, Hector Thibodeaux and colleagues, with an educational janet from [employer]. Review of Systems Const All systems reviewed & are unremarkable except as noted in HPI and below Eyes Reports no additional complaints ENT Reports no additional complaints Card Reports no additional complaints Resp Reports no additional complaints GI Reports no additional complaints Reports no additional complaints Physical exam (Primary Care) Vital Signs: Last Vital Signs Pulse 87 03/20/25 14:41 Resp 18 03/20/25 14:41 BP 128/78 03/20/25 14:41 Pulse Ox 95 03/20/25 14:41 Oxygen Delivery Method Room Air 03/20/25 14:41 BMI result Body Mass Index 43.2 Tobacco/Smoking Status: Tobacco use Status Tobacco use date assessed 03/20/25 03/20/25 14:45 Patient Tobacco Use Status Never used Tobacco 03/20/25 14:45 e-Cigarette/Vaping Use Never Used 03/20/25 14:45 Thrive Assessment: Date of Thrive Assessment Date Thrive assessed 01/19/25 03/20/25 14:45 Currently or been in a relationship where the following occur: No concerns reported Const General: no acute distress HENMT Head: Yes normal to inspection Resp Effort & Inspection: normal respiratory effort Auscultation: clear to auscultation bilaterally Cardio Rhythm: regular rhythm Heart sounds: S1 normal heart sound present and S2 normal heart sound present GI Inspection: Yes normal to inspection Palpation (GI): Soft to palpation Percussion: Yes normal to percussion Coding Level of Care Code Est Pt Level 4 (85409) Diagnoses DM type 2 (diabetes mellitus, type 2) E11.9 Hyperlipemia E78.5 Assessment & Plan Assessment & Plan (1) DM type 2 (diabetes mellitus, type 2): Code(s): E11.9 - Type 2 diabetes mellitus without complications Category: Medical Plan: A1c is down to 7.7 from 12.4. Patient will continue metformin ADA diet increase physical activity. She will follow-up in 3 months with a fasting labs before (2) Hyperlipemia: Code(s): E78.5 - Hyperlipidemia, unspecified Category: Medical Plan: Continue atorvastatin Orders: Orders Complete Blood Count Auto Diff 3 Months E11.9 - Type 2 diabetes mellitus without complications Hemoglobin A1c 3 Months E11.9 - Type 2 diabetes mellitus without complications Microalbumin, Random (w Creat) 3 Months E11.9 - Type 2 diabetes mellitus without complications Comprehensive [place]. Panel Fast 3 Months E11.9 - Type 2 diabetes mellitus without complications Lipid Panel 3 Months E11.9 - Type 2 diabetes mellitus without complications Medications: Changed From metformin ER 750 mg PO QPM 180 tabs 3RF To metformin ER 1,500 mg (2 x 750 mg) PO QPM 180 tabs 3RF
== END 2025-03-20 15:03 | disposition home or self-care (01) ==
LOC: HO.HMCC 13:54
PROVIDERS: PCP Internal Medicine; Visit Provider Internal Medicine
DX: E11.9 Type 2 diabetes mellitus without complications (principal); E78.5 Hyperlipidemia, unspecified

== ENCOUNTER → 2025-03-20 13:53 | Outpatient (BNVA) | payer OTHER, SELFPAY | PROVIDERS: PCP Internal Medicine; Visit Provider Internal Medicine | DX: Z13.89 Encounter for screening for other disorder (principal) ==